=== PATIENT | female | born 1990 | race Two or more races ===

== ENCOUNTER → 2023-09-24 | Outpatient (CLI) | payer BC ==
[2023-09-24 12:39] LABS: Basophils # (auto) 0 10 ^3/uL (0-0.2); Basophils % (auto) 0.4 % (0.0-2.0); Eosinophils # (auto) 0.1 10 ^3/uL (0-0.8); Eosinophils % (auto) 1.4 % (0.0-7.0); Hematocrit 37.2 % (36.0-46.0); Hemoglobin 12.7 g/dL (12.2-16.2); Lymphocytes % (auto) 32.3 % (10.0-50.0); Mean Corpuscular Hemoglobin 30.4 pg (28.0-32.0); Mean Corpuscular Hgb Conc. 34.3 g/dL (32.0-36.0); Mean Corpuscular Volume 88.7 fL (80.0-100.0); Monocytes # (auto) 0.7 10 ^3/uL (0-1.3); Neutrophils # (auto) 5.3 10 ^3/uL (1.6-8.6); Neutrophils % (auto) 57.9 % (37.0-80.0); Nucleated Red Blood Cells % 0.1 %; Red Blood Cells 4.19 10^6/uL (4.0-5.20); Red Cell Distribution Width 12.8 % (11.8-14.3); White Blood Cell 9.1 10^3/uL (4.4-10.8)
[2023-09-24 13:13] LABS: Amphetamine Screen, Urine Neg (NEGATIVE); Benzodiazephine Screen, Urine Neg (NEGATIVE)
[2023-09-24 13:15] LABS: Barbiturate Scree,Urine Neg (NEGATIVE); Cocaine Screen, Urine Neg (NEGATIVE); Opiate Scree,Urine Neg (NEGATIVE)
[2023-09-24 13:16] LABS: Cannabinoid Screen, Urine Neg (NEGATIVE); Phencyclidine Screen, Urine Neg (NEGATIVE)
[2023-09-25 06:06] LABS: RPR Non Reactive (Non Reactive)
[2023-09-25 18:06] LABS: Chlamydia Trachomatis, NAA Negative (Negative); Neisseria gonorrhoeae, NAA Negative (Negative)
[2023-09-27 09:06] LABS: QuantiFERON-TB Gold Plus Negative (Negative)
== END | disposition home or self-care (01) ==
LOC: LAB 11:58
PROVIDERS: ATTEND Obstetrics & Gynecology
DX: Z34.80 Encounter for supervision of other normal pregnancy, unspecified trimester (principal); Z72.51 High risk heterosexual behavior; Z3A.00 Weeks of gestation of pregnancy not specified
CPT/HCPCS: 36415; 80307; 83036; 84144; 84702; 85025; 86592; 86703; 86762; 86765; 86850; 86900; 86901; 87086; 87340

== ENCOUNTER 2024-04-08 15:10 | Inpatient (IN) | payer BC ==
[~2024-04-08] VITALS: Ht 162.6 cm; Wt 93.4 kg
[2024-04-08] MEDS ORDERED: NALBUPHINE HCL 10 MG/1ml INJECTION IV PRN (18:30)
[2024-04-08] MEDS ORDERED: ONDANSETRON HCL 4 MG/2 ML VIAL IV PRN (18:30)
--- NOTE | 2024-04-08 19:57 | DVHHP ---
ADMIT DATE: 04/08/2024 CHIEF COMPLAINT: Here for induction of labor. HISTORY OF PRESENT ILLNESS: The patient is a 33-year-old 2, para 1 with EDC 04/15, estimated gestational age of 39 weeks, admitted for induction of labor. The patient has requested induction of labor due to the distance. PAST MEDICAL HISTORY: None. PAST SURGICAL HISTORY: None. SOCIAL HISTORY: None. FAMILY HISTORY: None. OBSTETRIC AND GYNECOLOGIC HISTORY: One vaginal delivery. GBS negative, rubella A negative. REVIEW OF SYSTEMS: Consistent with HPI. PHYSICAL EXAMINATION: VITAL SIGNS: Stable, afebrile. HEENT: Within normal limits. CARDIOVASCULAR: Regular rate and rhythm. LUNGS: Clear to auscultation. BREASTS: Symmetrical. No masses. ABDOMEN: Gravid. Positive heart. PELVIC: 3 cm, 60%, -2. EXTREMITIES: No clubbing, cyanosis, or edema. IMPRESSION: Intrauterine at 39 weeks and induction of labor. PLAN: The patient is iggy on her own. We will observe. May need augmentation of labor versus Cytotec. After couple of hours of observation, informed consent obtained. DO VITA Ma TID: [id number] RECEIPT: [id number]
[2024-04-08 19:59] LABS: Basophils # (auto) 0 10 ^3/uL (0-0.2); Basophils % (auto) 0.1 % (0.0-2.0); Eosinophils # (auto) 0.2 10 ^3/uL (0-0.8); Eosinophils % (auto) 1.4 % (0.0-7.0); Hematocrit 35.2 % (36.0-46.0); Lymphocytes # (auto) 2.3 10 ^3/uL (0.4-5.4); Lymphocytes % (auto) 18.2 % (10.0-50.0); Mean Corpuscular Hemoglobin 30.5 pg (28.0-32.0); Mean Corpuscular Volume 89.7 fL (80.0-100.0); Monocytes # (auto) 0.6 10 ^3/uL (0-1.3); Monocytes % (auto) 4.9 % (0.0-12.0); Neutrophils # (auto) 9.5 10 ^3/uL (1.6-8.6); Neutrophils % (auto) 75.4 % (37.0-80.0); Platelet Count (auto) 255 10^3/uL (140-450); Red Blood Cells 3.93 10^6/uL (4.0-5.20); White Blood Cell 12.7 10^3/uL (4.4-10.8)
[2024-04-08 20:14] LABS: Albumin 3.7 g/dL (3.2-4.8); Alkaline Phosphatase 103 U/L (46-116); Anion Gap 8 (5-15); BUN/Creatinine Ratio 11.1 (10.0-20.0); Bilirubin, Total 0.3 mg/dL (0.2-1.0); Calcium 9.7 mg/dL (8.7-10.4); Carbon Dioxide 23 mmol/L (20-31); Chloride 106 mmol/L (98-107); Glucose 88 mg/dL (74-106); Potassium 3.7 mmol/L (3.5-5.1); Sodium 137 mmol/L (136-145); Total Protein 6.4 g/dL (5.7-8.2)
[2024-04-08 20:16] LABS: Alanine Aminotransferase < 9 U/L (7-40); Aspartate Aminotransferase 13 U/L (13-40); Blood Urea Nitrogen 8 mg/dL (9-23)
[2024-04-08 20:19] LABS: INR 0.9 (0.9-1.15); Partial Thromboplastin Time 26.5 SEC (24.5-34.5); Prothrombin Time 9.6 sec (9.3-11.8)
[2024-04-08 20:28] LABS: Urine Bacteria FEW /hpf (None Seen); Urine Blood Negative /uL (Negative); Urine Clarity Turbid (Clear); Urine Color Light-Yellow (Yellow); Urine Hyaline Cast FEW /lpf (0 - 2); Urine Mucus FEW (None Seen); Urine Protein, UAD Negative (Negative); Urine Specific Gravity 1.015 (1.001-1.035); Urine Urobilinogen Normal (Negative); Urine WBC 15 /hpf (0 - 5); Urine pH 6.5 (5.0-9.0)
[2024-04-08 21:03] LABS: Amphetamine Screen, Urine Neg (NEGATIVE); Barbiturate Scree,Urine Neg (NEGATIVE); Benzodiazephine Screen, Urine Neg (NEGATIVE); Cannabinoid Screen, Urine Neg (NEGATIVE); Cocaine Screen, Urine Neg (NEGATIVE); Opiate Scree,Urine Neg (NEGATIVE); Phencyclidine Screen, Urine Neg (NEGATIVE)
[2024-04-09] MEDS: DERMOPLAST 60ML BOTTLE TOP PRN (00:27)
[2024-04-09] MEDS: PHISODERM TOP SOLN 240ML BTL TOP PRN (00:27)
[2024-04-09] MEDS: WITCH HAZEL-GLYCERIN PAD TOP PRN (00:27)
[2024-04-09] MEDS: miSOPROStol 50 MCG per PRE-CUT 1/2 TAB PO PRN (00:30)
[2024-04-09] MEDS: ceFAZolin 1GM/50ML 50 ML IV SCH (00:40)
[2024-04-09] MEDS: LACTATED RINGER'S 1,000 ML IV SCH (00:41)
[2024-04-09] MEDS ORDERED: TERBUTALINE SULFATE 1 MG/ML 1ML VIAL SC PRN (04:30)
[2024-04-09] MEDS: LACT. RINGERS/OXYTOCIN 20UNITS 1,000 ML IV SCH (05:00)
--- NOTE | 2024-04-09 07:37 | DVHPN2 ---
Chief Complaints Patient reports: No new complaints Nursing reports: No new complaints Objective Medications Current Medications Medications (Trade) Dose Ordered Sig/Mart Route PRN Reason Start Time Stop Time Status Last Admin Benzocaine (Dermoplast) 1 applic PRN PRN TOP PERINEAL AREA DISCOMFORT 04/08/24 18:30 04/09/24 00:27 Cefazolin Sodium 50 ml @ 100 mls/hr Q8HR IV 04/09/24 00:30 04/09/24 00:40 Lactated Ringer's 1,000 ml @ 125 mls/hr Q8H IV 04/08/24 18:30 04/09/24 07:20 Lidocaine HCl (Xylocaine) 20 ml ONCE PRN IJ PERINEAL AREA DISCOMFORT 04/08/24 18:30 Misoprostol (Cytotec) 50 mcg Q4HPRN PRN PO CERVICAL RIPENING 04/08/24 18:30 04/09/24 00:30 Nalbuphine HCl (Nubain) 10 mg Q4HP PRN IV MODERATE PAIN (4-6 PAIN SCALE) 04/08/24 18:30 Ondansetron HCl (Zofran) 4 mg Q6HPRN PRN IV NAUSEA / VOMITING 04/08/24 18:30 Oxytocin 1,000 ml @ 6 ml/hr Q24H IV 04/09/24 04:30 04/09/24 05:00 Sodium Lauryl Sulfate (Phisoderm) 240 ml PRN PRN TOP PERINEAL AREA DISCOMFORT 04/08/24 18:30 04/09/24 00:27 Terbutaline Sulfate (Brethine Inj) 0.25 mg ONCE PRN SC Uterine tachysystole 04/09/24 04:30 Mckayla Garcia (Ravinder) 1 pad PRN PRN TOP PERINEAL AREA DISCOMFORT 04/08/24 18:30 04/09/24 00:27 Others VE-4CM/60/-2 Studies Laboratory Tests 04/08/24 19:13 Test 04/08/24 19:13 Range/Units Serum Glucose 88 74-106 mg/dL Ass/Plan Assessment LABOR Plan CONT WITH TOM GROSSMAN DO Apr 09, 2024 07:37
[2024-04-09] MEDS: ROPIVACAINE HCL 200 ML ONE (08:45)
[2024-04-09] MEDS: METHYLERGONOVINE MALEATE 0.2 MG/ML AMP IM ONE (12:14)
[2024-04-09] MEDS: LACT. RINGERS/OXYTOCIN 20UNITS 500 ML IV ONE ×2 (12:21→17:24)
--- NOTE | 2024-04-09 12:27 | LDN2 ---
Labor and Delivery Note Date 04/09/24 Age 33 2 Para 2 EDC 1-4 EGA 39wks Diagnosis iol Vaginal Delivery: VTX Vacuum Assisted: No Placenta: Spontaneous Sex: Male Apgars 8-9 Nuchal Cord Transected: No Amniotic Fluid: Clear Anesthesia epidural Episiotomy: No Extension: Yes (midline 2nd deg perineal lac) Repaired with 2-0 chromic EBL 300ml Labs Laboratory Tests 09/24/23 12:06: Hepatitis B Surface Antigen Negative, HIV (1&2) Antibody Negative, Rubella Antibody Positive Blood Bank 04/08/24 19:13: Blood Type A NEGATIVE Complications none Conditions stable Comments/Significant Med Barry spec exam no cxal lac TOM MARTIN DO Apr 09, 2024 12:27
[2024-04-09] MEDS ORDERED: ACETAMINOPHEN 325 MG TAB PO PRN (14:45)
[2024-04-09] MEDS ORDERED: ONDANSETRON ODT 4 MG TAB PO PRN (14:45)
[2024-04-09 15:00] VITALS: BP 118/68; PULSE 85; RESP 18; TEMP 97.6; O2SAT 97
[2024-04-09] MEDS: LIDOCAINE 2%HCL (LOCAL ANESTH.) INJ 20ML MDV IJ PRN (17:24)
[2024-04-09] MEDS: METHYLERGONOVINE MALEATE 0.2 MG/ML AMP IM PRN (17:25)
[2024-04-09] MEDS: IBUPROFEN 600 MG TAB PO PRN (18:58)
[2024-04-09 19:00] VITALS: BP 122/58; PULSE 91; RESP 18; TEMP 98.1; O2SAT 96
--- NOTE | 2024-04-09 21:01 | DVHPN2 ---
Progress Note Date Seen: Apr 09, 2024 Subjective S: Lochia minimal. Regular diet well tolerated. Ambulating and voiding well w/o feeling dizzy or lightheaded. Perineal pain relieved with topical analgesics and cramps with oral analgesics. Passing flatus but no BM yet. w/o problem vital signs Vital Sign Date Time Temp Pulse Resp B/P (MAP) Pulse Ox O2 Delivery O2 Flow Rate FiO2 04/09/24 19:00 Room Air 04/09/24 19:00 98.1 91 18 122/58 (79) 96 98.1 medications Current Medications Medications Dose Ordered Sig/Mart Route Start Time Stop Time Status Last Admin Dose Admin Witch Radha 1 pad PRN PRN TOP 04/08/24 18:30 04/09/24 00:27 1 PAD Sodium Lauryl Sulfate 240 ml PRN PRN TOP 04/08/24 18:30 04/09/24 00:27 240 ML Benzocaine 1 applic PRN PRN TOP 04/08/24 18:30 04/09/24 00:27 1 APPLIC Ibuprofen 600 mg Q6HP PRN PO 04/09/24 14:45 04/09/24 18:58 600 MG Acetaminophen 650 mg Q4HP PRN PO 04/09/24 14:45 Ondansetron HCl 4 mg Q4HPRN PRN PO 04/09/24 14:45 Docusate Sodium 200 mg HS PO 04/09/24 22:00 laboratory and microbiology Laboratory Tests 04/08/24 19:13 Test 04/08/24 19:13 Range/Units Serum Glucose 88 74-106 mg/dL Objective O: A&O x3 NAD. Afebrile, VSS Chest: heart and lung sounds normal. Breasts: Nipples intact w/o cracks or soreness Abdomen: normal BS, soft, non-tender, no rebound or guarding, fundus firm @ U Perineum:- no edema, or erythema, laceration site with sutures intact, edges in good approximation. Extremities: no edema or tenderness Lochia - normal Assessment/Plan 33yo now ppd#0 s/p doing well. Blood Type: A Rh: Negative Note: Rhogam not indicated - blood type A Rh Neg Breast feeding Rubella: Immune Pain control with oral medications Bowel regimen: Increase fluid intake and fiber in diet, Laxative PRN Discharge plan: May discharge home tomorrow if patient desires and condition remains stable Plan discussed with: Patient, Spouse KENZIE OLSEN CNM Apr 09, 2024 21:01
[2024-04-09] MEDS ORDERED: DOCUSATE SOD 100 MG CAP PO SCH (22:00)
[2024-04-09 23:00] VITALS: BP 95/51; PULSE 79; RESP 16; TEMP 98.1; O2SAT 98
[2024-04-10 03:06] VITALS: BP 93/59; PULSE 78; RESP 18; TEMP 98.1; O2SAT 98
[2024-04-10] MEDS ORDERED: INFLUENZA TRIVALENT 2024-2025 0.5 ML INJ IM ONE (06:00)
[2024-04-10 07:15] VITALS: BP 117/75; PULSE 82; RESP 16; TEMP 98.4; O2SAT 99
--- NOTE | 2024-04-10 07:49 | DVHPN2 ---
Progress Note Date Seen: Apr 10, 2024 Subjective S: Lochia minimal. Regular diet well tolerated. Ambulating and voiding well w/o feeling dizzy or lightheaded. Perineal pain relieved with topical analgesics and cramps with oral analgesics. Passing flatus but no BM yet. w/o problem Desires & Requests to be discharged today vital signs Vital Sign Date Time Temp Pulse Resp B/P (MAP) Pulse Ox O2 Delivery O2 Flow Rate FiO2 04/10/24 03:06 98.1 78 18 93/59 (70) 98 98.1 04/09/24 19:00 Room Air Total Intake and Output 04/09/24 04/09/24 04/10/24 15:00 23:00 07:00 Output Total 1600 ml 600 ml Balance -1600 ml -600 ml medications Current Medications Medications Dose Ordered Sig/Mart Route Start Time Stop Time Status Last Admin Dose Admin Markcristian Radha 1 pad PRN PRN TOP 04/08/24 18:30 04/09/24 00:27 1 PAD Sodium Lauryl Sulfate 240 ml PRN PRN TOP 04/08/24 18:30 04/09/24 00:27 240 ML Benzocaine 1 applic PRN PRN TOP 04/08/24 18:30 04/09/24 00:27 1 APPLIC Ibuprofen 600 mg Q6HP PRN PO 04/09/24 14:45 04/10/24 06:37 600 MG Acetaminophen 650 mg Q4HP PRN PO 04/09/24 14:45 Ondansetron HCl 4 mg Q4HPRN PRN PO 04/09/24 14:45 Docusate Sodium 200 mg HS PO 04/09/24 22:00 laboratory and microbiology Laboratory Tests 04/08/24 19:13 Test 04/08/24 19:13 Range/Units Serum Glucose 88 74-106 mg/dL Objective O: A&O x3 NAD. Afebrile, VSS Chest: heart and lung sounds normal. Breasts: Nipples intact w/o cracks or soreness Abdomen: normal BS, soft, non-tender, no rebound or guarding, fundus firm @ U- 1, Perineum:- no edema, or erythema, laceration site with sutures intact, edges in good approximation. Extremities: no edema or tenderness Lochia - minimal Assessment/Plan 33yo now ppd#1_ s/p doing well. Blood Type: A Rh: Negative Rhogam not Indicated; Blood type A Rh Neg Breast feeding Rubella: Immune Pain control with oral medications Bowel regimen: Increase fluid intake and fiber in diet, Laxative PRN Discharge plan: May discharge home later today if condition remains stable Plan discussed with: Patient, Spouse KENZIE OLSEN CNM Apr 10, 2024 07:49
--- NOTE | 2024-04-10 08:04 | DVHDS2 ---
Obstetrics Discharge Summary Obstetrics Discharge Summary Date of Admission: Apr 08, 2024 Date of Discharge: Apr 10, 2024 Reason For Admission: Induction of Labor Procedures: None Intrapartum Procedures: Spontaneous vaginal deliv Procedures: None, Hct/date: (35.2% on 04/08/24), Hgb/date: (12.0g/dL on 04/08/24) Discharge Diagnosis: Term -Delivered Discharge Information: Activity (Unrestricted. Advance as tolerated. No heavy lifting, pushing or straining. Pelvic rest x 6weeks), Diet (Routine regular diet rich in fiber, protein, iron and vitamin C with adequate fluid intake.), Medications (Ibuprofen 600mg every 6 hours as needed for pain. Continue Vitamin), Instructions ( self care instructions given. emergency signs and symptoms including pre-eclampsia precautions and signs of PPD reviewed with patient. Follow up with OB Provider in 1-2 weeks), Discharge to (Home) KENZIE OLSEN CNM Apr 10, 2024 08:04
[2024-04-10 11:13] VITALS: BP 117/75; PULSE 88; RESP 16; TEMP 98.1; O2SAT 98
[2024-04-11 11:06] LABS: RPR Non Reactive (Non Reactive)
== END 2024-04-10 12:52 | disposition home or self-care (01) | DRG 807 ==
LOC: LDRP 18:00
PROVIDERS: ADMIT Obstetrics & Gynecology; ATTEND Obstetrics & Gynecology
PROC: 10E0XZZ Delivery of Products of Conception, External Approach (ICD-10-PCS; principal; 2024-04-08)
PROC: 0KQM0ZZ Repair Perineum Muscle, Open Approach (ICD-10-PCS; 2024-04-08)
PROC: 3E0R3BZ Introduction of Anesthetic Agent into Spinal Canal, Percutaneous Approach (ICD-10-PCS; 2024-04-08)
PROC: 00HU33Z Insertion of Infusion Device into Spinal Canal, Percutaneous Approach (ICD-10-PCS; 2024-04-08)
DX: O70.1 Second degree perineal laceration during delivery (principal); Z37.0 Single live birth; Z3A.39 39 weeks gestation of pregnancy
CPT/HCPCS: 36415; 59025; 59409; 62282; 80053; 80307; 81001; 81002; 85025; 85610; 85730; 86592; 86780; 86803; 86850; 86870; 86900; 86901; 90656; 94760; 96360; 96361; 96365; 96366; 96372; G0378; J2590